=== PATIENT | male | born 1950 | race Caucasian/White ===

== ENCOUNTER 2019-07-18 14:02 | Emergency (ER) | payer MEDICARE, SELFPAY ==
[2019-07-18 14:21] VITALS: BP 155/74; PULSE 61; RESP 16; TEMP 36.4; O2SAT 99; BMI 28.7
[2019-07-18 15:08] LABS: Influenza A - CEPHEID Flu A NEGATIVE (NEGATIVE); Influenza B - CEPHEID Flu B NEGATIVE (NEGATIVE)
--- NOTE | 2019-07-18 15:23 | DI.RAD.S_ITS ---
PROCEDURE: XR CHEST 1V INDICATIONS: fevers, chills, body aches TECHNIQUE: One view of the chest was acquired. COMPARISON: None. FINDINGS: Surgical changes and devices: None. Lungs and pleura: Lungs are clear. No pleural effusions or pneumothorax. Mediastinum: Mediastinal contours appear normal. Heart size is normal. Bones and chest wall: No suspicious bony lesions. Overlying soft tissues appear unremarkable. IMPRESSION: No acute pulmonary process. Dictated by: Tiki Chauhan M.D. on 07/18/2019 at 15:57 Approved by: Tiki Chauhan M.D. on 07/18/2019 at 16:02
[2019-07-18 16:20] LABS: Add Manual Diff / Slide Review NO; Basophils Absolute Auto 0 /uL (0-100); Basophils Percent Auto 0.5 % (0-2); Eosinophils Absolute Auto 100 /uL (0-450); Hematocrit 44.7 % (41-53); Hemoglobin 15.7 g/dL (13.5-17.5); Lymphocytes Absolute Auto 1200 /uL (1100-4500); Mean Corpuscular HGB Conc 35.1 % (30-36); Mean Corpuscular Hemoglobin 32.3 PG (26-34); Mean Corpuscular Volume 92.1 fL (80-100); Monocytes Absolute Auto 900 /uL (0-900); Monocytes Percent Auto 15.9 % (3-14); Neutrophils Absolute Auto 3600 /uL (1500-7000); Neutrophils Percent Auto 61.6 % (50-75); Platelet Count 203 X10^3/uL (150-400); Red Blood Cell Count 4.85 X10^6/uL (4.5-5.9); Red Cell Distribution Width 12.8 % (11.6-14.8); White Blood Cell Count 5.8 X10^3/uL (4.5-11.0)
[2019-07-18 16:24] LABS: Lactate (Lactic Acid) 0.9 mmol/L (0.7-2.1)
[2019-07-18 16:25] LABS: Alanine Aminotransferase 22 IU/L (<50); Albumin 4.4 g/dL (3.5-5.0); Albumin Globulin Ratio 1.3 (1.0-2.8); Alkaline Phosphatase 53 U/L (38-126); Aspartate Aminotransferase 26 IU/L (17-59); BUN Creatinine Ratio 22.2 (6-22); Bilirubin Total 1.2 mg/dL (0.2-1.3); Blood Urea Nitrogen 20 mg/dL (9-20); Calcium 9.4 mg/dL (8.4-10.2); Carbon Dioxide 28 mmol/L (22-32); Chloride 99 mmol/L (98-107); Estimated Glomerular Filt Rate > 60.0 mL/min (>60); Globulin 3.4 g/dL (1.7-4.1); Glucose 94 mg/dL (80-110); HEMOLYSIS < 15 (0-50); Lipase 75 U/L (23-300); Potassium 3.9 mmol/L (3.4-5.1); Sodium 138 mmol/L (137-145); Total Protein 7.8 g/dL (6.3-8.2)
[2019-07-18 17:27] VITALS: BP 165/77; PULSE 56; RESP 18; TEMP 36.5; O2SAT 98
--- NOTE | 2019-07-18 17:35 | DI.RAD.S_ITS ---
PROCEDURE: XR ABDOMEN MIN 2V INDICATIONS: nausea, unable to take po TECHNIQUE: 2 views of the abdomen were acquired. COMPARISON: [facility], , CT KUB, 11/07/2004, 12:56. FINDINGS: Surgical changes and devices: None. Bowel: No pneumoperitoneum. The bowel gas pattern demonstrates multiple air-fluid levels throughout the small and large bowel. There is a paucity of gas in the small bowel, with no abnormal gas-distended small bowel loops. Soft tissues: No suspicious abdominal calcifications. Bones: No suspicious bony abnormalities. IMPRESSION: 1. Nonspecific bowel gas pattern with scattered air-fluid levels throughout the small and large bowel. The findings likely reflect a gastroenteritis or an ileus but if there is clinical suspicion for obstruction, further evaluation may be obtained with CT. Dictated by: Federico Broussard M.D. on 07/18/2019 at 19:50 Approved by: Federico Broussard M.D. on 07/18/2019 at 19:52
[2019-07-18 18:04] LABS: Bacteria Urine None Seen
[2019-07-18 18:20] LABS: Amorphous Sediment Urine 1+; Culture Indicated Urine Cult Not Indicated; RBC Urine 10-30/HPF (0-5/HPF); Squamous Epithelial Cell Urine None Seen (0-5/HPF); WBC Urine 0-1/HPF (0-5/HPF)
[2019-07-18] MEDS: ONDANSETRON 4 MG ODT PREPACK 1 BOTTLE MISC (20:41)
[2019-07-18 20:45] VITALS: BP 149/74; PULSE 57; RESP 15; TEMP 37.1; O2SAT 96
--- NOTE | 2019-07-18 20:54 | ED.FEVER ---
HPI - Fever <PAWAN Laughlin - Last Filed: 07/18/19 20:59> General Chief Complaint: Fever Stated Complaint: cant hold fluids, poss flu Time Seen by Provider: 07/18/19 15:20 Source: patient Mode of arrival: Ambulatory Limitations: no limitations History of Present Illness HPI Narrative: The patient is a 68-year-old male nonsmoker who denies pertinent medical history presents with his for chief complaint of nausea and possible flu. Starting on Thursday started having muscle aches and chills. Subjective fevers, did not check temperature. Has nausea, no vomiting. No diarrhea. No cough or congestion. Concerned about the flu. is concerned as he is not taking enough oral fluids. [place] was [place], and was given IV fluids and Zofran. Since then he felt better. On my evaluation the patient is requesting food. Denies any abdominal pain. Related Data Previous Rx's Medication Instructions Recorded ondansetron 4 mg PO Q6H PRN #14 tab 07/18/19 Allergies Allergy/AdvReac Type Severity Reaction Status Date / Time No Known Drug Allergies Allergy Verified 07/18/19 14:21 Review of Systems <PAWAN Laughlin - Last Filed: 07/18/19 20:59> Review of Systems Narrative: GENERAL: See HPI HEENT: Denies sinus pain, ear pain, sore throat, difficulty swallowing, dizziness. RESPIRATORY: Denies dyspnea, cough, wheezing, hemoptysis, sputum. CARDIOVASCULAR: Denies chest pain, palpitations, orthopnea, edema, GASTROINTESTINAL: See HPI : Denies dysuria, frequency, incontinence, hematuria, urinary retention. MUSCULOSKELETAL: denies weakness, joint pain, or bony pain SKIN: Denies rash, skin lesions, or other NEUROLOGIC: Denies weakness, headache, numbness, change in speech, confusion, seizures, incoordination. PSYCHIATRIC: No concerning psychosocial issues. 12 point review of systems is negative except for those stated above Patient History <PAWAN Laughlin - Last Filed: 07/18/19 20:59> Social History Smoking Status: Never smoker Smoking Status: Never smoker Substance Use Type: does not use Exam <PAWAN Laughlin - Last Filed: 07/18/19 20:59> Narrative Exam Narrative: GENERAL: This is a well-nourished, well-developed patient, no acute distress with at bedside HEAD: Atraumatic. Normocephalic. No temporal or scalp tenderness. EYES: Pupils equal round and reactive. Extraocular motions intact. No scleral icterus. No injection or drainage. ENT: Nose without bleeding, purulent drainage or septal hematoma. Throat without erythema, tonsillar hypertrophy or exudate. Uvula midline. Airway patent. NECK: Trachea midline. No JVD or lymphadenopathy. Supple, nontender, no meningeal signs. CARDIOVASCULAR: Regular rate and rhythm. RESPIRATORY: Clear to auscultation. Breath sounds equal bilaterally. No wheezes, rales, or rhonchi. No cough. No increased respiratory effort. No accessory muscle use. GASTROINTESTINAL: Abdomen soft, non-tender, nondistended. No hepato-splenomegaly, or palpable masses. No guarding. No pain to palpation. Active bowel sounds all 4 quadrants. Negative De La Torre sign. No pain over McBurney's point. EXTREMITIES: No clubbing, cyanosis, or edema. No joint tenderness, effusion, or edema noted. BACK: Nontender without deformity or crepitance. No flank tenderness. NEURO: AOx3. SKIN: No rash or erythema on visible skin Initial Vital Signs Initial Vital Signs: Vital Signs Temperature 97.6 F 07/18/19 14:21 Pulse Rate 61 07/18/19 14:21 Respiratory Rate 16 07/18/19 14:21 Blood Pressure 155/74 H 07/18/19 14:21 Pulse Oximetry 99 07/18/19 14:21 <Doe Morgan DO - Last Filed: 07/18/19 22:07> Initial Vital Signs Initial Vital Signs: Vital Signs Temperature 97.6 F 07/18/19 14:21 Pulse Rate 61 07/18/19 14:21 Respiratory Rate 16 07/18/19 14:21 Blood Pressure 155/74 H 07/18/19 14:21 Pulse Oximetry 99 07/18/19 14:21 Course <PAWAN Laughlin - Last Filed: 07/18/19 20:59> Orders Ordered: ED Orders 07/18/19 14:30 Flu test [Influenza A & B (PCR)] Stat 07/18/19 15:23 XR chest 1V Stat 07/18/19 15:59 Complete Blood Count AUTO DIFF Stat Comprehensive Metabolic Panel Stat Lactate (Lactic Acid) Stat Lipase Stat 07/18/19 16:05 Blood Culture Stat 07/18/19 17:14 Urine Microscopic Stat 07/18/19 17:35 XR abdomen min 2V Stat Discontinued Medications Ondansetron HCl (Zofran Odt Prepack) 1 bottle MISC SEEINSTR ONE Stop: 07/18/19 20:20 Last Admin: 07/18/19 20:41 Dose: 1 bottle Documented by: BARBARA Vital Signs Vital signs: Vital Signs - 8 hr 07/18/19 14:21 07/18/19 17:27 07/18/19 20:45 Temperature 97.6 F 97.7 F 98.7 F Pulse Rate 61 56 L 57 L Respiratory Rate 16 18 15 Blood Pressure 155/74 H Blood Pressure [Left Arm] 165/77 H 149/74 H Pulse Oximetry 99 98 96 <Doe Morgan DO - Last Filed: 07/18/19 22:07> Orders Ordered: ED Orders 07/18/19 14:30 Flu test [Influenza A & B (PCR)] Stat 07/18/19 15:23 XR chest 1V Stat 07/18/19 15:59 Complete Blood Count AUTO DIFF Stat Comprehensive Metabolic Panel Stat Lactate (Lactic Acid) Stat Lipase Stat 07/18/19 16:05 Blood Culture Stat 07/18/19 17:14 Urine Microscopic Stat 07/18/19 17:35 XR abdomen min 2V Stat Discontinued Medications Ondansetron HCl (Zofran Odt Prepack) 1 bottle MISC SEEINSTR ONE Stop: 07/18/19 20:20 Last Admin: 07/18/19 20:41 Dose: 1 bottle Documented by: BARBARA Vital Signs Vital signs: Vital Signs - 8 hr 07/18/19 14:21 07/18/19 17:27 07/18/19 20:45 Temperature 97.6 F 97.7 F 98.7 F Pulse Rate 61 56 L 57 L Respiratory Rate 16 18 15 Blood Pressure 155/74 H Blood Pressure [Left Arm] 165/77 H 149/74 H Pulse Oximetry 99 98 96 MDM - Fever <PAWAN Laughlin - Last Filed: 07/18/19 20:59> Lab Data Result diagrams: 07/18/19 15:59 07/18/19 15:59 Labs: Lab Results 07/18/19 07/18/19 07/18/19 Range/Units 14:30 15:59 15:59 WBC 5.8 (4.5-11.0) X10^3/uL RBC 4.85 (4.5-5.9) X10^6/uL Hgb 15.7 (13.5-17.5) g/dL Hct 44.7 (41-53) % MCV 92.1 (80-100) fL MCH 32.3 (26-34) PG MCHC 35.1 (30-36) % RDW 12.8 (11.6-14.8) % Plt Count 203 (150-400) X10^3/uL Neut % (Auto) 61.6 (50-75) % Lymph % (Auto) 20.0 L (25-40) % [place] % (Auto) 15.9 H (3-14) % Eos % (Auto) 2.0 (2-4) % Baso % (Auto) 0.5 (0-2) % Neut # (Auto) 3600 (9124-9137) /uL Lymph # (Auto) 1200 (5349-0838) /uL [place] # (Auto) 900 (0-900) /uL Eos # (Auto) 100 (0-450) /uL Baso # (Auto) 0 (0-100) /uL Sodium 138 (137-145) mmol/L Potassium 3.9 (3.4-5.1) mmol/L Chloride 99 (98-107) mmol/L Carbon Dioxide 28 (22-32) mmol/L BUN 20 (9-20) mg/dL Creatinine 0.90 (0.66-1.25) mg/dL Estimated GFR > 60.0 (>60) mL/min BUN/Creatinine Ratio 22.2 H (6-22) Glucose 94 (80-110) mg/dL Lactate (0.7-2.1) mmol/L Calcium 9.4 (8.4-10.2) mg/dL Total Bilirubin 1.2 (0.2-1.3) mg/dL AST 26 (17-59) IU/L ALT 22 (<50) IU/L Alkaline Phosphatase 53 (38-126) U/L Total Protein 7.8 (6.3-8.2) g/dL Albumin 4.4 (3.5-5.0) g/dL Globulin 3.4 (1.7-4.1) g/dL Albumin/Globulin Ratio 1.3 (1.0-2.8) Lipase 75 (23-300) U/L Urine RBC (0-5/HPF) Urine WBC (0-5/HPF) Ur Squamous Epith Cells (0-5/HPF) Amorphous Sediment Urine Bacteria (None) Ur Culture Indicated? Influenza A (RT-PCR) Flu a negative (NEGATIVE) Influenza B (RT-PCR) Flu b negative (NEGATIVE) 07/18/19 07/18/19 Range/Units 15:59 17:14 WBC (4.5-11.0) X10^3/uL RBC (4.5-5.9) X10^6/uL Hgb (13.5-17.5) g/dL Hct (41-53) % MCV (80-100) fL MCH (26-34) PG MCHC (30-36) % RDW (11.6-14.8) % Plt Count (150-400) X10^3/uL Neut % (Auto) (50-75) % Lymph % (Auto) (25-40) % [place] % (Auto) (3-14) % Eos % (Auto) (2-4) % Baso % (Auto) (0-2) % Neut # (Auto) (5493-5708) /uL Lymph # (Auto) (4105-8417) /uL [place] # (Auto) (0-900) /uL Eos # (Auto) (0-450) /uL Baso # (Auto) (0-100) /uL Sodium (137-145) mmol/L Potassium (3.4-5.1) mmol/L Chloride (98-107) mmol/L Carbon Dioxide (22-32) mmol/L BUN (9-20) mg/dL Creatinine (0.66-1.25) mg/dL Estimated GFR (>60) mL/min BUN/Creatinine Ratio (6-22) Glucose (80-110) mg/dL Lactate 0.9 (0.7-2.1) mmol/L Calcium (8.4-10.2) mg/dL Total Bilirubin (0.2-1.3) mg/dL AST (17-59) IU/L ALT (<50) IU/L Alkaline Phosphatase (38-126) U/L Total Protein (6.3-8.2) g/dL Albumin (3.5-5.0) g/dL Globulin (1.7-4.1) g/dL Albumin/Globulin Ratio (1.0-2.8) Lipase (23-300) U/L Urine RBC 10-30/hpf H (0-5/HPF) Urine WBC 0-1/hpf (0-5/HPF) Ur Squamous Epith Cells None seen (0-5/HPF) Amorphous Sediment 1+ Urine Bacteria None seen (None) Ur Culture Indicated? Cult not indicated Influenza A (RT-PCR) (NEGATIVE) Influenza B (RT-PCR) (NEGATIVE) Urine Dip Bedside Urine Glucose Negative Bedside Urine Bilirubin + 1 Bedside Urine Ketone +++ 80 Urine Specific [place] 1.025 Bedside Urine Occult Blood +++ Bedside Urine pH 6.0 Bedside Urine Protein +/- 15 Bedside Urine Urobilinogen - Negative Bedside Urine Nitrite - Negative Bedside Urine Leukocytes - Negative Esterase Imaging Data Abdominal x-ray: Radiologist's Impression: [address] [place] [id number] XRay Report Signed Patient: Sebastian Martinez MMR#: [id number] : 1950Acct:[id number] Age/Sex: 68 / MDate of Service: 07/18/19 Loc: ED Accession Number: [id number] Procedure: XR abdomen min 2V Ordering Provider: Maggie PickardP- PROCEDURE: XR ABDOMEN MIN 2V INDICATIONS: nausea, unable to take po TECHNIQUE: 2 views of the abdomen were acquired. COMPARISON: [facility], , CT KUB, 11/07/2004, 12:56. FINDINGS: Surgical changes and devices: None. Bowel: No pneumoperitoneum. The bowel gas pattern demonstrates multiple air-fluid levels throughout the small and large bowel. There is a paucity of gas in the small bowel, with no abnormal gas-distended small bowel loops. Soft tissues: No suspicious abdominal calcifications. Bones: No suspicious bony abnormalities. IMPRESSION: 1. Nonspecific bowel gas pattern with scattered air-fluid levels throughout the small and large bowel. The findings likely reflect a gastroenteritis or an ileus but if there is clinical suspicion for obstruction, further evaluation may be obtained with CT. Dictated by: Federico Broussard M.D. on 07/18/2019 at 19:50 Approved by: Federico Broussard M.D. on 07/18/2019 at 19:52 Chest x-ray: Radiologist's Impression: [address] [place] [id number] XRay Report Signed Patient: Sebastian Martinez [facility]#: [id number] : 1950Acct:[id number] Age/Sex: 68 / MDate of Service: 07/18/19 Loc: ED Accession Number: [id number] Procedure: XR chest 1V Ordering Provider: Maggie Fisher D.O. PROCEDURE: XR CHEST 1V INDICATIONS: fevers, chills, body aches TECHNIQUE: One view of the chest was acquired. COMPARISON: None. FINDINGS: Surgical changes and devices: None. Lungs and pleura: Lungs are clear. No pleural effusions or pneumothorax. Mediastinum: Mediastinal contours appear normal. Heart size is normal. Bones and chest wall: No suspicious bony lesions. Overlying soft tissues appear unremarkable. IMPRESSION: No acute pulmonary process. Dictated by: Tiki Chauhan M.D. on 07/18/2019 at 15:57 Approved by: Tiki Chauhan M.D. on 07/18/2019 at 16:02 MDM Narrative Medical decision making narrative: Male who presents with a chief complaint of chills, nausea no vomiting and concern for flu. Flu is negative. CBC, CMP, urine unremarkable. Chest x-ray unremarkable with no pneumonia. Abdominal x-ray shows no obstruction. Patient felt much improved in the emergency department, was able to eat crackers, juice and jumana joe and stated he was ready to go home. I discussed at length the importance of following with primary care provider. Prescription for Zofran given. Return precautions of any acute concerns and inability keep down fluids discussed. Patient have no questions or concerns upon discharge and state understanding of return precautions as well as follow-up care. <Doe Morgan DO - Last Filed: 07/18/19 22:07> Lab Data Labs: Lab Results 07/18/19 07/18/19 07/18/19 Range/Units 14:30 15:59 15:59 WBC 5.8 (4.5-11.0) X10^3/uL RBC 4.85 (4.5-5.9) X10^6/uL Hgb 15.7 (13.5-17.5) g/dL Hct 44.7 (41-53) % MCV 92.1 (80-100) fL MCH 32.3 (26-34) PG MCHC 35.1 (30-36) % RDW 12.8 (11.6-14.8) % Plt Count 203 (150-400) X10^3/uL Neut % (Auto) 61.6 (50-75) % Lymph % (Auto) 20.0 L (25-40) % [place] % (Auto) 15.9 H (3-14) % Eos % (Auto) 2.0 (2-4) % Baso % (Auto) 0.5 (0-2) % Neut # (Auto) 3600 (9787-0308) /uL Lymph # (Auto) 1200 (8665-1417) /uL [place] # (Auto) 900 (0-900) /uL Eos # (Auto) 100 (0-450) /uL Baso # (Auto) 0 (0-100) /uL Sodium 138 (137-145) mmol/L Potassium 3.9 (3.4-5.1) mmol/L Chloride 99 (98-107) mmol/L Carbon Dioxide 28 (22-32) mmol/L BUN 20 (9-20) mg/dL Creatinine 0.90 (0.66-1.25) mg/dL Estimated GFR > 60.0 (>60) mL/min BUN/Creatinine Ratio 22.2 H (6-22) Glucose 94 (80-110) mg/dL Lactate (0.7-2.1) mmol/L Calcium 9.4 (8.4-10.2) mg/dL Total Bilirubin 1.2 (0.2-1.3) mg/dL AST 26 (17-59) IU/L ALT 22 (<50) IU/L Alkaline Phosphatase 53 (38-126) U/L Total Protein 7.8 (6.3-8.2) g/dL Albumin 4.4 (3.5-5.0) g/dL Globulin 3.4 (1.7-4.1) g/dL Albumin/Globulin Ratio 1.3 (1.0-2.8) Lipase 75 (23-300) U/L Urine RBC (0-5/HPF) Urine WBC (0-5/HPF) Ur Squamous Epith Cells (0-5/HPF) Amorphous Sediment Urine Bacteria (None) Ur Culture Indicated? Influenza A (RT-PCR) Flu a negative (NEGATIVE) Influenza B (RT-PCR) Flu b negative (NEGATIVE) 07/18/19 07/18/19 Range/Units 15:59 17:14 WBC (4.5-11.0) X10^3/uL RBC (4.5-5.9) X10^6/uL Hgb (13.5-17.5) g/dL Hct (41-53) % MCV (80-100) fL MCH (26-34) PG MCHC (30-36) % RDW (11.6-14.8) % Plt Count (150-400) X10^3/uL Neut % (Auto) (50-75) % Lymph % (Auto) (25-40) % [place] % (Auto) (3-14) % Eos % (Auto) (2-4) % Baso % (Auto) (0-2) % Neut # (Auto) (5221-3639) /uL Lymph # (Auto) (0385-7257) /uL [place] # (Auto) (0-900) /uL Eos # (Auto) (0-450) /uL Baso # (Auto) (0-100) /uL Sodium (137-145) mmol/L Potassium (3.4-5.1) mmol/L Chloride (98-107) mmol/L Carbon Dioxide (22-32) mmol/L BUN (9-20) mg/dL Creatinine (0.66-1.25) mg/dL Estimated GFR (>60) mL/min BUN/Creatinine Ratio (6-22) Glucose (80-110) mg/dL Lactate 0.9 (0.7-2.1) mmol/L Calcium (8.4-10.2) mg/dL Total Bilirubin (0.2-1.3) mg/dL AST (17-59) IU/L ALT (<50) IU/L Alkaline Phosphatase (38-126) U/L Total Protein (6.3-8.2) g/dL Albumin (3.5-5.0) g/dL Globulin (1.7-4.1) g/dL Albumin/Globulin Ratio (1.0-2.8) Lipase (23-300) U/L Urine RBC 10-30/hpf H (0-5/HPF) Urine WBC 0-1/hpf (0-5/HPF) Ur Squamous Epith Cells None seen (0-5/HPF) Amorphous Sediment 1+ Urine Bacteria None seen (None) Ur Culture Indicated? Cult not indicated Influenza A (RT-PCR) (NEGATIVE) Influenza B (RT-PCR) (NEGATIVE) Urine Dip Bedside Urine Glucose Negative Bedside Urine Bilirubin + 1 Bedside Urine Ketone +++ 80 Urine Specific [place] 1.025 Bedside Urine Occult Blood +++ Bedside Urine pH 6.0 Bedside Urine Protein +/- 15 Bedside Urine Urobilinogen - Negative Bedside Urine Nitrite - Negative Bedside Urine Leukocytes - Negative Esterase Discharge Plan Departure Patient Disposition: Home Clinical Impression: Nausea, Viral illness Discharge Date/Time: 07/18/19 20:46 Instructions: DI for Viral Syndrome, DI for Nausea -- Adult, Nausea and Vomiting-Adult Activity Restrictions/Additional Instructions: I sent a prescription of Zofran to [facility] We also gave you a take-home pack of the nausea medication. Your lab work and imaging came back with no acute findings today in do feel better in about able to tolerate p.o. food and fluids Please follow-up with primary care provider in the next few days Please come back to the emergency department for any acute concerns. Please be aware that Zofran can be constipating. Prescriptions: New ondansetron 4 mg tablet,disintegrating 4 mg PO Q6H PRN (Reason: nausea and vomiting) Qty: 14 RF: 0 Referrals: Oren Mao MD [Non-Staff] - <Doe Morgan DO - Last Filed: 07/18/19 22:07> Sign Out Provider Sign Out Attestation: Dr Morgan Co-Sign Statement: I was available for consultation during this patient's emergency department visit. This chart is signed by myself for administrative purposes only. I did not have direct contact with this patient during this visit. They were seen independently by the APC.
== END 2019-07-18 20:46 | disposition home or self-care (01) ==
PROVIDERS: Emergency Medicine; Emergency Provider Nurse Practitioner Family
DX: R11.0 Nausea (principal); B34.8 Other viral infections of unspecified site; R50.9 Fever, unspecified; R52 Pain, unspecified
CPT/HCPCS: 36415; 71045; 74019; 80053; 81003; 81015; 83605; 83690; 85025; 87040; 87502; 99283; 99284

== ENCOUNTER 2022-09-23 06:30 | Day surgery (SDC) | payer MEDICARE, SELFPAY ==
[2022-09-23] VITALS (8 sets, daily range): BP systolic 115–165; BP diastolic 62–86; PULSE 59–75; RESP 10–18; TEMP 36–36.6; O2SAT 90–97; BMI 30.1
[2022-09-23] MEDS: LACTATED RINGERS 1,000 ML 42 ML IV (07:25)
--- NOTE | 2022-09-23 07:50 | PM.HP.1 ---
History of Present Illness History of Present Illness Date Patient Seen: 09/23/22 Time Patient Seen: 07:50 Chief complaint: SDC Narrative: Jan is a 71-year-old man with a left inguinal hernia. He is here for his open left repair with mesh. [facility], [facility] Medical History Chicken pox (~1955) Diverticular disease (~2000) Fracture, ribs (~2017) Measles (~1956) Surgical History Anesthesia History of shoulder surgery (~1984) Family History Father Dementia Mother History of heart disease Sister Cancer Grandfather History of heart disease Grandfather History of heart disease Social History household members: spouse Smoking Status: Former smoker alcohol intake: current Meds Home Medications and Allergies Home Medications Medication Instructions Recorded Confirmed Type omeprazole magnesium 20 mg 20 mg PO DAILY 09/23/22 09/23/22 History tablet,delayed release (Prilosec OTC) Allergies Allergy/AdvReac Type Severity Reaction Status Date / Time No Known Drug Allergies Allergy Verified 09/23/22 07:05 Exam Vital Signs (past 8 hours): - 09/23/22 07:21 Temperature 97.0 F L Pulse Rate 59 L Respiratory Rate 18 Blood Pressure 165/86 H Pulse Oximetry 96 Oxygen Delivery Method Room Air Oxygen Delivery Method Room Air Narrative Exam Narrative: Reducible left inguinal hernia Assessment & Plan Assessment and plan (1) Left inguinal hernia: Status: Acute Plan Plan for open left inguinal hernia repair with mesh. Reviewed risks and benefits and he would like to proceed.
[2022-09-23] MEDS: CEFAZOLIN 2 GM/100 ML PREMIX 100 ML IV (07:55)
[2022-09-23] MEDS: ACETAMINOPHEN IV 1,000 MG/100 ML VIAL 400 MG IV (08:00)
--- NOTE | 2022-09-23 08:17 | SUR.OPER ---
Supine on padded OR bed, head on pillow, arms secured on padded arm boards at <90 degrees abduction, legs uncrossed, safety belt at thigh, tape over blanket over lower legs.
[2022-09-23] MEDS: BUPIVACAINE 0.5% (PF) 30 ML, EPINEPHrine 0.15 MG INJ (08:27)
--- NOTE | 2022-09-23 09:14 | P.OP_ITS ---
Operative Date/Time/Diagnoses Date of procedure: 09/23/22 Time of procedure: 09:14 Pre-op diagnosis: Left inguinal hernia Post-op diagnosis: same Procedure & Clinicians Procedure: Open left inguinal hernia repair with mesh Same procedure as scheduled: Yes Surgeon: Billy Moore Dressing Room Attendant: Bashir Robledo Anesthesia Type: General Operative Notes Procedure in detail: Preoperative antibiotic was administered. The patient was brought to the o perating room and placed on the table in supine position general anesthesia was induced. The left groin was prepped and draped in the normal fashion and a time-out was performed. Roughly 10 mL of local anesthetic were injected into the skin and subcutaneous adipose tissue over the left groin. A 6 cm incision was made over the left inguinal canal. Dissection was carried down through the subcutaneous adipose tissue. A bridging vein was cauterized. We exposed the external oblique aponeurosis in the direction of the fibers. Additional local was injected deep to the aponeurosis. A 15 blade scalpel was used to medardo the external oblique aponeurosis. Metzenbaum scissors were used to carefully open the aponeurosis in the direction of the fibers taking care not to injure the underlying ilioinguinal nerve which was well seen and protected. We completely exposed the inguinal canal. The cord was dissected free from the inguinal ligament and floor of the inguinal canal and the external oblique aponeurosis was dissected off of the internal oblique taking care not to injure the hypogastric nerve. We encircled the cord with a Estefania drain for retraction. There was an indirect defect along with a cord lipoma. The cord lipoma was amputated. The indirect sac was dissected free and reduced into the abdomen. We placed a polypropylene mesh over the inguinal canal floor. The mesh was secured with multiple interrupted 3-0 Prolene sutures to the pubic tubercle and shelving edge of the inguinal ligament as well as to the conjoint tendon medially. We overlapped the tails to recreate an internal ring and secured the medial tail to the inguinal ligament with additional sutures. We injected some more local into the fatty tissue in the inguinal canal and cord. Finally, we removed the Estefania drain and closed the external oblique fascia with a running 3-0 Vicryl suture. Skin was closed with interrupted 3-0 Vicryl dermal sutures and a running 4 Monocryl subcuticular stitch. EBL 5 mL The patient was awakened and brought to recovery room. Post-operative Condition: stable Disposition: PACU
--- NOTE | 2022-09-23 10:14 | SUR.PHASEII ---
DC home with in WC. Denies pain, voided, no n/v. Pain RX sent to [facility].
== END 2022-09-23 10:15 | disposition home or self-care (01) ==
PROVIDERS: PCP Family Medicine; Referring Provider Surgery; Visit Provider Surgery
PROC: (CPT 49505; principal; 2022-09-23 07:45)
DX: K40.90 Unilateral inguinal hernia, without obstruction or gangrene, not specified as recurrent (principal); D17.6 Benign lipomatous neoplasm of spermatic cord
CPT/HCPCS: 49505; J0131; J0171; J0690; J1100; J1170; J1885; J2405; J2704; J3010

== ENCOUNTER → 2024-04-01 16:36 | Outpatient (CLI) | payer MEDICARE, SELFPAY ==
--- NOTE | 2024-04-01 16:38 | DI.MRI.S_ITS ---
PROCEDURE: MR LUMBAR SPINE WO CON INDICATIONS: RADICULOPATHY TECHNIQUE: Noncontrast sagittal T1 spin echo and T2 fast echo, sagittal STIR, axial T1 and T2 fast spin echo through the lumbar spine. Axial and oblique coronal T1 spin echo and STIR through the sacrum. In cases with scoliosis, additional coronal T2 fast spin echo may be performed. COMPARISON: None. FINDINGS: Alignment and Curvature: There is normal bony alignment. Bone Marrow: Marrow is of normal overall signal. No acute vertebral body compression fractures. No sacral fractures. Spinal Cord: Conus medullaris terminates at the L1 level. Visualized cord demonstrates normal signal and size. Paraspinous Soft Tissues: No paravertebral masses. T12-L1: Normal appearance. L1-L2: Normal appearance. L2-L3: Normal appearance. L3-L4: Hypertrophic arthropathy. No central or foraminal stenosis L4-L5: Hypertrophic arthropathy mild disc bulge results in [id number] central stenosis. Mild left no right foraminal stenosis L5-S1: Arthropathy. No central stenosis. 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 on 04/04/2024 at 19:08
== END ==
LOC: MRI 16:37
PROVIDERS: PCP Family Medicine; Referring Provider Family Medicine; Visit Provider Family Medicine
DX: M47.27 Other spondylosis with radiculopathy, lumbosacral region (principal); M47.26 Other spondylosis with radiculopathy, lumbar region; M48.061 Spinal stenosis, lumbar region without neurogenic claudication
CPT/HCPCS: 72148

== ENCOUNTER → 2024-10-13 15:22 | Outpatient (CLI) | payer MEDICARE, SELFPAY ==
--- NOTE | 2024-10-13 15:24 | DI.ECHO.S_ITS ---
[facility] : : [id number] : : [place] : : [id number] : : Phone: [phone] Echocardiogram Report + + :Name: [id number] BOX Study Date: 10/13/2024 Height: 70 in : :[facility] ReadingLocation: Weight: 205 lb : : Gender: Male BSA: 2.1 m2 : :: 1950 Age: 73 yrs BP: 156/86 mmHg: :Reason For Study: MURMUR : :Ordering Physician: VIRI, : :MICHELLE Dominguez Performed By: Lorenzo Christine : :Referring: MICHELLE MEREDITH : + + Interpretation Summary 1) Normal left ventricular thickness, size, wall motion, and systolic function (EF 55-60%). 2) Mildly enlarged right ventricle with normal function. 3) No significant valvular abnormalities. 4) No prior Echo available for comparison. Procedure: A two-dimensional transthoracic echocardiogram with color flow and Doppler was performed. The study quality was technically good. There is no prior echocardiogram noted for this patient. The patient was in normal sinus rhythm during the exam. Left Ventricle: The left ventricle is normal in size. There is normal left ventricular wall thickness. There is no ventricular septal defect visualized. The ejection fraction is estimated to be 55-60%. There are no focal wall motion abnormalities. Diastolic parameters suggest a relaxation abnormality of the left ventricle, consistent with probable normal filling pressures. Right Ventricle: The right ventricle is mildly dilated. The right ventricular systolic function is normal. Atria: The left atrium is moderately dilated. The right atrium is mildly dilated. Mitral Valve: The mitral valve leaflets appear normal. There is no evidence of stenosis, fluttering, or prolapse. There is trace mitral regurgitation. Aortic Valve: The aortic valve is trileaflet. The aortic valve is mildly calcified. The aortic valve opens well. There is no aortic valve stenosis. No aortic regurgitation is present. Tricuspid Valve: The tricuspid valve leaflets are thin and pliable. There is mild tricuspid regurgitation. The right ventricular systolic pressure is estimated to be at least 40 mmHg based on an estimated right atrial pressure of 3 mm Hg. Pulmonic Valve: The pulmonic valve leaflets are thin and pliable; valve motion is normal. There is trace pulmonic regurgitation. Great Vessels: The aortic root is normal size. The ascending aorta is at the upper limits of normal in size. The pulmonary artery is normal size. The IVC is of normal diameter and collapses greater than 50% with a sniff. This suggests a low right atrial pressure of 3 mm Hg. Pericardium/ Pleura There is no pericardial effusion. There is no pleural effusion. MMode/2D Measurements & Calculations LVIDd: 4.8 cm LVOT diam: 2.1 cm LVIDs: 2.9 cm Ao root diam: 3.3 cm FS: 40.3 % asc Aorta Diam: 4.0 cm EPSS: 0.61 cm Ao Arch Diam (Prox Trans): 1.6 cm IVSd: 0.96 cm LVPWd: 0.91 cm LV scruggs. diameter/BSA (cm/m^2): 2.3 LV sys. diameter/BSA (cm/m^2): 1.4 LA A2 area: 23.6 cm2 RA long axis: 4.8 cm LA A4 area: 25.3 cm2 RA area: 16.9 cm2 LA length (vol): 6.0 cm RA vol: 50.1 ml LA vol: 84.5 ml RA : 23.8 ml/m2 LA vol index: 40.1 ml/m2 IVC diam: 1.6 cm RVD1 (basal): 4.0 cm RVD2 (mid): 2.6 cm TAPSE: 3.1 cm Doppler Measurements & Calculations Ao V2 max: 172.0 cm/sec LVOT Max Jabari: 101.7 cm/sec Ao V2 mean: 120.6 cm/sec LV V1 max P.1 mmHg Ao max P.8 mmHg LV V1 VTI: 22.6 cm Ao mean P.7 mmHg ARIE(I,D): 2.3 cm2 Ao V2 VTI: 34.0 cm ARIE(V,D): 2.1 cm2 sev ratio: 0.67 ARIE indexed to BSA (cm^2/m^2): 1.1 MV E max jabari: 47.4 cm/sec TR max jabari: 302.6 cm/sec MV A max jabari: 56.2 cm/sec TR max P.6 mmHg MV E/A: 0.84 PA V2 max: 136.6 cm/sec Med Peak E' Jabari: 6.0 cm/sec PA V2 mean: 91.5 cm/sec E/E' med: 7.9 PA mean P.9 mmHg Lat Peak E' Jabari: 9.3 cm/sec PA pr(Accel): 49.9 mmHg E/E' lat: 5.1 E/e' average: 6.5 MV dec time: 0.20 sec SV(LVOT): 79.0 ml Reading Physician:[id number] PM
== END ==
PROVIDERS: PCP Family Medicine; Referring Provider Family Medicine; Visit Provider Family Medicine
DX: I07.1 Rheumatic tricuspid insufficiency (principal); R01.1 Cardiac murmur, unspecified
CPT/HCPCS: 93306